=== PATIENT | female | born 1950 | race Caucasian/White ===

== ENCOUNTER 2017-11-14 08:56 | Emergency (ER) | payer OTHER ==
[2017-11-14 09:08] VITALS: O2SAT 94
[2017-11-14] MEDS ORDERED: IPRATROPIUM/ALBUTEROL 3 ML DEYVIAL IH ONE (10:35)
[2017-11-14] MEDS ORDERED: ONDANSETRON 4MG PREPACK#2 BTL TAKEHOME ONE (11:25)
--- NOTE | 2017-11-14 11:25 | EDPHY ---
H & P Stated Complaint: Flu like sxs HPI/ROS: Chief complaint: Cold symptoms History of present illness: This is a 67-year-old female who presents to the emergency department for cold symptoms. She reports she has been sick for the last few days. She has had tactile fevers, runny nose, nasal congestion, sore throat, cough and chest congestion and generalized malaise. Denies other associated signs or symptoms including no trouble breathing, no rash. Review of systems: A 10 point review of systems was obtained and other than described above was negative - Personal History Current Tetanus Diphtheria and Acellular Pertussis (TDAP): Yes - Medical/Surgical History Other PMH: HTN. GERD - Social History Smoking Status: Never smoked - Physical Exam Exam: General Appearance: Alert and no distress. Eyes: Pupils equal and round no injection. ENT: Tympanic membranes, external auditory canals, external ears and surrounding soft tissue including over the mastoids are unremarkable. Nasopharynx is mildly injected. There is no rhinorrhea. Oropharynx is mildly injected. There is no edema. There is no exudate. There is no asymmetry. The uvula is midline. No elevation of the tongue. There is no hoarseness, no drooling, no trismus, no stridor. Respiratory: Chest is non tender, lungs are clear to auscultation. Cardiac: regular rate and rhythm Musculoskeletal: Neck is supple and non tender. Extremities have full range of motion and are non tender. Skin: No rashes or lesions. Neurological: Alert and oriented x4. Strength and sensation intact and symmetrical. No meningismus. Constitutional: Initial Vital Signs Temperature (C) 38.2 C 11/14/17 09:00 Heart Rate 104 H 11/14/17 09:00 Respiratory Rate 18 11/14/17 09:00 Blood Pressure 147/78 H 11/14/17 09:00 O2 Sat (%) 94 11/14/17 09:00 O2 Delivery Mode Room Air Allergies/Adverse Reactions: adhesive tape Allergy (Mild, Verified 11/14/17 09:10) local irritation latex Allergy (Mild, Verified 11/14/17 09:10) Rash Penicillins Allergy (Mild, Verified 11/14/17 09:09) irritiation at injection site Home Medications: Medication Instructions Recorded Codeine Phosphate/Guaifenesin 5 - 10 ml PO Q6 PRN #120 ml 11/14/17 [Codeine-Guaifen 10-100 mg/5 ml] Ondansetron Odt [Zofran Odt 4 mg 4 mg PO Q4 #10 tab 11/14/17 (*)] Ranitidine HCl [Zantac 75] 75 mg PO 11/14/17 Triamterene [Dyrenium 50MG (*)] 50 mg PO DAILY 11/14/17 Medical Decision Making - Diagnostics Imaging: I viewed and interpreted images myself ED Course/Re-evaluation: Patient seen under the supervision of my secondary supervising physician Dr. Aundrea Cardenas. Patient presents to the emergency department for cold symptoms. She is nontoxic. Vital signs are stable. Negative flu. Negative chest x-ray. Likely a viral syndrome. She will be symptomatically treated. She is to follow up with her primary care doctor for recheck. Return precautions are given. Patient voiced understanding and agreement with plan. Differential Diagnosis: Included but not limited to influenza, URI, bronchitis, pneumonia - Data Points Medications Given: Discontinued Medications Albuterol/Ipratropium (Duoneb) 3 ml IH EDNOW ONE Stop: 11/14/17 10:36 Last Admin: 11/14/17 10:40 Dose: 3 ml Ondansetron HCl (Zofran Odt 4 Mg Prepack#2) 1 btl TAKEHOME EDNOW ONE Stop: 11/14/17 11:26 Last Admin: 11/14/17 11:37 Dose: 1 btl Departure - Departure Disposition: Home, Routine, Self-Care Clinical Impression: Acute bronchitis Qualifiers: Bronchitis organism: unspecified organism Qualified Code(s): J20.9 - Acute bronchitis, unspecified Condition: Good Instructions: Ondansetron (By mouth), Acute Bronchitis (ED) Additional Instructions: Follow-up with a primary care doctor for recheck this week If symptoms worsen or new symptoms develop return to the emergency room for recheck Referrals: EMEKA ANN [Other] - As per Instructions Prescriptions: Codeine Phosphate/Guaifenesin [Codeine-Guaifen 10-100 mg/5 ml] 5 - 10 ml PO Q6 PRN #120 ml PRN Reason: Cough, Mild Ondansetron Odt [Zofran Odt 4 mg (*)] 4 mg PO Q4 #10 tab
[2017-11-14 11:44] VITALS: BP 138/71; PULSE 105; RESP 16; TEMP 98.6
== END 2017-11-14 12:03 | disposition home or self-care (01) ==
DX: J20.9 Acute bronchitis, unspecified (principal); I10 Essential (primary) hypertension; Z91.040 Latex allergy status